=== PATIENT | female | born 2000 | race African-American/Black ===

== ENCOUNTER 2023-12-13 17:43 | Emergency (ER) | payer OTHER, SELFPAY ==
[2023-12-13 17:45] VITALS: BP 133/74; PULSE 88; RESP 16; TEMP 36.9; O2SAT 100; BMI 31.9
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
[2023-12-13 21:52] VITALS: BP 119/72; PULSE 89; RESP 17; O2SAT 100
== END 2023-12-13 21:56 | disposition home or self-care (01) ==
PROVIDERS: Emergency Provider Emergency Medicine
DX: R51.9 Headache, unspecified (principal)
CPT/HCPCS: 70450; 99281; 99284

== ENCOUNTER 2024-01-17 14:12 | Emergency (ER) | payer OTHER, SELFPAY ==
[2024-01-17] VITALS (8 sets, daily range): BP systolic 112–124; BP diastolic 67–82; PULSE 69–90; RESP 13–18; TEMP 36.8; O2SAT 95–100; BMI 31.4
--- NOTE | 2024-01-17 15:30 | ED.EYEPROB ---
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 Patient has been followed by her primary care doctor and optometry for eye pain. She was seen 12/13/2023 in the emergency department for papilledema. Head CT at that time was negative. She continues to have eye pain and today at the scroll machine operator's office the papilledema was noted to be worse with possible visual field deficits and she was sent to the ER for MRI and lumbar puncture. On arrival patient states her visual thakkar have not changed. She does get light sensitivity and pain with specific eye movements, denies other complaints at this time. Related Data Allergies Allergy/AdvReac Type Severity Reaction Status Date / Time No Known Drug Allergies Allergy Verified 01/17/24 14:26 Patient History Social History Smoking Status: Unknown if ever smoked Smoking Status: Unknown if ever smoked Exam Initial Vital Signs Initial Vital Signs: Vital Signs Temperature 98.3 F 01/17/24 14:14 Pulse Rate 69 01/17/24 14:14 Respiratory Rate 13 01/17/24 14:14 Blood Pressure 121/82 01/17/24 14:14 Pulse Oximetry 100 01/17/24 14:14 Oxygen Delivery Method Room Air 01/17/24 14:14 Const: Awake, alert, no acute distress, nontoxic appearing Skin: Warm, Dry, intact, no rashes Neuro: AO x3, CN II-XII grossly intact, moves all extremities Procedures Lumbar Puncture Patient Position: left lateral decubitus Skin Prep: Povidone-Iodine 1% Local Anesthetic: lidocaine 1% Amount of anesthesia used (mL): 5 Spinal Needle Gauge: 22G Interspace Used: L4-L5 Additional Comments: Unsuccessful. Course Orders Ordered: ED Orders 01/17/24 16:25 CT head/brain wo con Stat Discontinued Medications Lorazepam (Lorazepam 2 Mg/Ml Inj) 2 mg IV NOW ONE Stop: 01/17/24 16:26 Last Admin: 01/17/24 17:34 Dose: 2 mg Documented By: RLS Morphine Sulfate (Morphine 4 Mg/Ml Inj) 2 mg IV NOW ONE Stop: 01/17/24 16:26 Last Admin: 01/17/24 17:33 Dose: 2 mg Documented By: FLAKO Vital Signs Vital signs: Vital Signs - 8 hr 01/17/24 14:14 01/17/24 14:23 01/17/24 14:24 Temperature 98.3 F Pulse Rate 69 Respiratory Rate 13 Blood Pressure 121/82 121/82 Pulse Oximetry 100 95 Oxygen Delivery Method Room Air 01/17/24 14:24 01/17/24 17:32 01/17/24 17:33 Temperature Pulse Rate 75 Respiratory Rate Blood Pressure 112/70 Pulse Oximetry 100 97 Oxygen Delivery Method 01/17/24 17:33 01/17/24 18:00 01/17/24 18:00 Temperature Pulse Rate 70 84 Respiratory Rate Blood Pressure 124/69 Pulse Oximetry 100 100 Oxygen Delivery Method MDM - Eye Problem Imaging Data CT scan - head: Radiologist's Impression: PROCEDURE: CT HEAD/BRAIN WO CON INDICATIONS: PAPILLEDEMA, worsening TECHNIQUE: Noncontrast 4.5 mm thick angled axial sections acquired from the foramen magnum to the vertex, with coronal and sagittal reformats. For radiation dose reduction, the following was used: automated exposure control, adjustment of mA and/or kV according to patient size. COMPARISON: [facility], CT, CT HEAD/BRAIN WO CON, 12/13/2023, 18:21. FINDINGS: Image quality: Diagnostic. CSF spaces: Basal cisterns are patent. No extra-axial fluid collections. Ventricles are normal in size and shape. Brain: No midline shift. No intracranial masses or hemorrhage. Wolf-white matter interface is normal. Skull and face: Calvarium and visualized facial bones are intact, without suspicious lesions. Sinuses: Visualized sinuses and mastoids are clear. IMPRESSION: No acute intracranial pathology. Dictated by: Mary Jo Montemayor M.D. on 01/17/2024 at 16:52 Approved by: Mary Jo Montemayor M.D. on 01/17/2024 at 16:52 [facility] Narrative Medical decision making narrative: Well-appearing patient with eye pain. Outside optometry reports noticed worsening of papilledema. Patient denies changes in her visual thakkar. Reports pain with eye movements. Call placed to neurology for recommendations. Spoke with Dr. Bailey at [facility] neurology, who recommended repeat head CT before lumbar puncture. Stated that based on presentation MRI not emergent and can wait until already scheduled on the 15. Did recommend that if lumbar puncture was successful that patient should have IgG sent to assess for possible MS. Unfortunately lumbar puncture successful. Bandage applied. Patient was counseled to keep her appointment on the for MRI as scheduled. She was counseled to continue to follow up with her PCM for further evaluation of her symptoms. Note for work provided. Discharge Plan Departure Patient Disposition: Home Clinical Impression: Eye pain Instructions: DI for Eye Pain Activity Restrictions/Additional Instructions: Your repeat head scan today was normal. Unfortunately the lumbar puncture we attempted today was not successful. I spoke with Neurology at [facility]. Your clinical presentation is overall reassuring and you are safe to wait for your MRI in 5 days as already scheduled. Continue to follow up with your primary care doctor for your complaints. Stand Alone Forms: Patient Portal/API/Survey, Work Release Note
--- NOTE | 2024-01-17 16:25 | DI.CT.S_ITS ---
PROCEDURE: CT HEAD/BRAIN WO CON INDICATIONS: PAPILLEDEMA, worsening TECHNIQUE: Noncontrast 4.5 mm thick angled axial sections acquired from the foramen magnum to the vertex, with coronal and sagittal reformats. For radiation dose reduction, the following was used: automated exposure control, adjustment of mA and/or kV according to patient size. COMPARISON: [facility], CT, CT HEAD/BRAIN WO CON, 12/13/2023, 18:21. FINDINGS: Image quality: Diagnostic. CSF spaces: Basal cisterns are patent. No extra-axial fluid collections. Ventricles are normal in size and shape. Brain: No midline shift. No intracranial masses or hemorrhage. Wolf-white matter interface is normal. Skull and face: Calvarium and visualized facial bones are intact, without suspicious lesions. Sinuses: Visualized sinuses and mastoids are clear. IMPRESSION: No acute intracranial pathology. Dictated by: Mary Jo Montemayor M.D. on 01/17/2024 at 16:52 Approved by: Mary Jo Montemayor M.D. on 01/17/2024 at 16:52
[2024-01-17] MEDS: MORPHINE 4 MG/ML INJ 2 MG IV (17:33)
[2024-01-17] MEDS: LORazepam 2 MG/ML INJ IV (17:34)
== END 2024-01-17 19:30 | disposition home or self-care (01) ==
PROVIDERS: Emergency Provider Emergency Medicine
DX: H57.13 Ocular pain, bilateral (principal)
CPT/HCPCS: 36415; 70450; 96374; 96375; 99284; J2060; J2270

== ENCOUNTER → 2024-01-22 10:44 | Outpatient (CLI) | payer OTHER, SELFPAY ==
--- NOTE | 2024-01-22 10:46 | DI.MRI.S_ITS ---
PROCEDURE: MR HEAD/BRAIN WO/W CON INDICATIONS: PAPILLEDEMA ASSOC. W INCREASED INTRACRANIAL PRESS TECHNIQUE: Noncontrast sagittal T1 spin echo, axial T2 fast spin echo, axial FLAIR, axial gradient echo, axial diffusion and ADC through the brain. Axial/sagittal/coronal 3-D CISS, thin-slice axial T1 spin echo with fat saturation through the skull base. After the administration of contrast, axial and coronal thin-slice T1 spin echo with fat saturation through the skull base, axial and coronal and sagittal T1 spin echo with fat saturation through the brain. COMPARISON: None. FINDINGS: CSF spaces: Ventricles are normal in size and shape. No extra-axial fluid collections. Basal cisterns are patent. Brain: No intracranial bleeds or mass effects. No abnormal intracranial enhancement. Diffusion weighted images show no acute ischemic insults. Wolf-white matter interface is intact. Brainstem is normal. Normal intravascular flow voids are present. Skull and face: Calvarial marrow signal is normal. There is fluid distension of both optic nerve sheaths as well as flattening of the posterior sclera on the right. Flattening of the pituitary against the floor of the sella is also noted. Sinuses: Sinuses and mastoids appear clear. IMPRESSION: Signs of increased intracranial pressure without intracranial mass lesion or abnormal enhancement. Primary differential would be pseudotumor cerebri Approved by: Atn Cisneros M.D. on 01/23/2024 at 17:43
== END ==
DX: H47.11 Papilledema associated with increased intracranial pressure (principal)
CPT/HCPCS: 70553; A9579

== ENCOUNTER 2024-02-19 07:55 | Emergency (ER) | payer OTHER, SELFPAY ==
[2024-02-19 08:02] VITALS: O2SAT 98
[2024-02-19 08:03] VITALS: BP 105/65; PULSE 69; O2SAT 100
[2024-02-19 08:08] VITALS: BP 105/65; PULSE 71; RESP 16; TEMP 36.4; O2SAT 99; BMI 30.4
--- NOTE | 2024-02-19 08:14 | ED_ITS ---
HPI - Headache General Chief Complaint: Headache Stated Complaint: had procedure 3 days ago, now ARREGUIN and back pain Time Seen by Provider: 02/19/24 08:03 History of Present Illness HPI Narrative: 23-year-old woman with concerns for headache, followed at [facility] with lumbar puncture done 4 days ago. She comes in complaining of headache with movement and standing. No fevers no visual changes, no acute nausea or vomiting. She is concerned that she may have headache related to the lumbar puncture. She does have follow up with primary care and neurology specialists in the near future. Related Data Allergies Allergy/AdvReac Type Severity Reaction Status Date / Time No Known Drug Allergies Allergy Verified 01/17/24 14:26 Review of Systems Review of Systems Narrative: Pertinent positive and negative findings as per HPI Patient History Social History Smoking Status: Unknown if ever smoked Smoking Status: Unknown if ever smoked Exam Initial Vital Signs Initial Vital Signs: Vital Signs Temperature 97.5 F L 02/19/24 08:08 Pulse Rate 71 02/19/24 08:08 Respiratory Rate 16 02/19/24 08:08 Blood Pressure 105/65 02/19/24 08:08 Pulse Oximetry 99 02/19/24 08:08 Oxygen Delivery Method Room Air 02/19/24 08:08 General: Alert appropriate in no acute distress HEENT: Pupils are equal reactive. No pain with extraocular eye movement Respiratory: Able to speak in full sentences, no obvious respiratory distress Skin: No obvious rashes, warm and dry. Area over the lumbar spine where lumbar puncture was performed is entirely healed with no significant tenderness or redness. Neurologic: Grossly intact no obvious asymmetries or abnormalities Psych: appropriate insight and affect, cooperative Course Vital Signs Vital signs: Vital Signs - 8 hr 02/19/24 08:08 Temperature 97.5 F L Pulse Rate 71 Respiratory Rate 16 Blood Pressure 105/65 Pulse Oximetry 99 Oxygen Delivery Method Room Air MDM - Headache MDM Narrative Medical decision making narrative: CC: Headache Complicating co-morbidities: Recent lumbar puncture Data collected from: patient Medical records reviewed: Records from [facility] with procedure and workup are not immediately available Differential considered: Post lumbar puncture headache, migraine, meningitis, other viral syndrome Exam documented above, pertinent findings include: Exam is quite benign. No visual changes. Minimal tenderness with positional changes that resolves fairly quickly. No meningismus and remainder of neurologic exam is unremarkable Lab Test results independently reviewed as above. Pertinent findings: CBC shows chronic stable anemia, no leukocytosis or left shift Chemistries are entirely reassuring Treatments: L of fluid, Zofran, Toradol and a double shot latte as we do not have IV caffeine available today Re-evaluations: Patient is currently pain-free Discussion: 23-year-old woman with mild post spinal headache resolved with fluids nonsteroidals and caffeine. Recommended Excedrin for headache over the next couple of days as well as continued focus on increasing fluids for the next 24 hours. There was no signs of infection, no indication for additional imaging or hospitalization. Patient did have questions about the mild anemia noted on her H&H. She apparently has had iron-deficiency anemia in the past. Numbers reviewed her, recommended [id number] iron and vitamin-C supplementation follow up with her primary care physician She is safe for discharge Discharge Plan Departure Patient Disposition: Home Clinical Impression: Spinal headache Anemia Qualifiers: Anemia type: iron deficiency Iron deficiency anemia type: unspecified iron deficiency Qualified Code(s): D50.9 - Iron deficiency anemia, unspecified Instructions: Anemia, DI for Post-Spinal Puncture Headache Activity Restrictions/Additional Instructions: Thank you for coming into I suspect you did have a mild post spinal headache. Resolved nicely with fluids, nausea medication, nonsteroidal IV medication and the 2 shots of caffeine For pain control if the headache returns over the next couple of days, I would recommend 2 extra-strength Excedrin. Continuing to make sure that you are well hydrated we will also help prevent recurrence Incidentally noted is mild anemia. Your hemoglobin is 10.8, normal as over 12th. You are hematocrit is 34, normal is over 36. Your MCV (mean corpuscular volume, the average size of each red blood cell) is somewhat small suggesting mild iron deficiency. An [id number] iron supplement taken with the vitamin-C can help with this. If you find that you are having worsening headache, fever, nausea, visual changes or any new findings that are of concern, please do return to the ER Stand Alone Forms: Patient Portal/API/Survey
[2024-02-19 08:49] LABS: Add Manual Diff / Slide Review NO; Basophils Absolute Auto 0 /uL (0-100); Basophils Percent Auto 0.5 % (0-2); Eosinophils Absolute Auto 200 /uL (0-450); Eosinophils Percent Auto 3.3 % (2-4); Hemoglobin 10.8 g/dL (12.0-16.0); Lymphocytes Absolute Auto 1700 /uL (1100-4500); Lymphocytes Percent Auto 25.6 % (25-40); Mean Corpuscular HGB Conc 31.8 % (30-36); Mean Corpuscular Hemoglobin 23.5 PG (26-34); Monocytes Absolute Auto 600 /uL (0-900); Monocytes Percent Auto 8.2 % (3-14); Neutrophils Absolute Auto 4200 /uL (1500-7000); Neutrophils Percent Auto 62.4 % (50-75); Platelet Count 206 X10^3/uL (150-400); Red Cell Distribution Width 20.8 % (11.6-14.8); White Blood Cell Count 6.8 X10^3/uL (4.5-11.0)
[2024-02-19] MEDS: SODIUM CHLORIDE 0.9% 1,000 ML 1000 ML IV (08:50)
[2024-02-19] MEDS: ONDANSETRON 4 MG/2 ML INJ IV (08:50)
[2024-02-19] MEDS: KETOROLAC 30 MG/ML VIAL 15 MG IV (08:50)
[2024-02-19 08:57] LABS: Alanine Aminotransferase 17 IU/L (<35); Albumin 4.3 g/dL (3.5-5.0); Albumin Globulin Ratio 1.2 (1.0-2.8); Alkaline Phosphatase 54 U/L (38-126); Aspartate Aminotransferase 22 IU/L (14-36); BUN Creatinine Ratio 16.1 (6-22); Bilirubin Total 0.3 mg/dL (0.2-1.3); Blood Urea Nitrogen 15 mg/dL (7-17); Calcium 9.2 mg/dL (8.4-10.2); Carbon Dioxide 22 mmol/L (22-32); Chloride 105 mmol/L (98-107); Estimated Glomerular Filt Rate > 60 mL/min (>60); Globulin 3.6 g/dL (1.7-4.1); Glucose 90 mg/dL (70-100); HEMOLYSIS < 15 (0-50); Potassium 3.9 mmol/L (3.4-5.1); Sodium 135 mmol/L (137-145); Total Protein 7.9 g/dL (6.3-8.2)
[2024-02-19 08:58] LABS: Anisocytosis 1+
--- NOTE | 2024-02-19 09:24 | PC.NURSE ---
Pt reports headache wrapping around like a band and on top of head. Pt denies numbness, tingling. Denies loss of bladder or bowel. Pt states that any time she would stand up fast, bend over, or lift her head her headache would worsen. Pt states that after interventions here in the ER her pain is barely noticeable. Speech clear. Respirations regular and unlabored.
[2024-02-19 09:53] VITALS: BP 111/61; PULSE 70; O2SAT 100
== END 2024-02-19 09:54 | disposition home or self-care (01) ==
PROVIDERS: Emergency Provider Emergency Medicine
DX: G97.1 Other reaction to spinal and lumbar puncture (principal); D50.9 Iron deficiency anemia, unspecified
CPT/HCPCS: 80053; 85025; 96361; 96374; 96375; 99283; 99284; J1885; J2405

== ENCOUNTER 2024-11-04 17:04 | Emergency (ER) | payer OTHER, SELFPAY ==
[2024-11-04 17:18] VITALS: PULSE 99
[2024-11-04 17:30] VITALS: BP 122/58; PULSE 88; PULSE 97; RESP 24; TEMP 37.1; O2SAT 100; O2SAT 98; BMI 30.4
[2024-11-04 18:00] VITALS: PULSE 92; O2SAT 98
[2024-11-04 18:13] LABS: Strep Grp A by PCR Rapid Negative (Negative)
--- NOTE | 2024-11-04 18:13 | ED_ITS ---
HPI - URI/Sore Throat General Chief Complaint: Upper Respiratory Symptoms Stated Complaint: cold like symptoms Time Seen by Provider: 11/04/24 18:10 Source: patient Mode of arrival: Ambulatory History of Present Illness HPI Narrative: 24-year-old female with a history of idiopathic intracranial hypertension on acetazolamide presents with complaint of nasal congestion, nonproductive cough, occasional sore throat, chills. Patient denies fevers. She notes no chest pain but has had some shortness of breath at time. She describes a nonproductive cough. She has not had any nausea or vomiting. She states no constipation she has had some mild diarrhea since her symptoms started. Denies any dysuria urgency or frequency. No rash or skin changes. States symptoms started Tuesday all with the same time. She states she was at [facility] having a follow up for her idiopathic intracranial hypertension she states her scans and workup looked very good and that she is going to three-month checks. She states they did not wear gloves when they evaluated her and she thinks that is what got her infected. She denies any allergies to medications. States it is he does oral meds her only daily medication besides PRN acetaminophen or ibuprofen. Related Data Allergies Allergy/AdvReac Type Severity Reaction Status Date / Time No Known Drug Allergies Allergy Verified 11/04/24 17:30 Review of Systems Review of Systems ROS Unobtainable: All systems reviewed & are unremarkable except as noted in HPI and below Patient History Social History Smoking Status: Never smoker Smoking Status: Never smoker Exam Narrative Exam Narrative: GEN: well nourished, well appearing female, alert and oriented x 3, patient appears to be in mild distress. HEENT: Atraumatic, pupils are equal round reactive to light, extraocular movements are intact, bilateral nasal congestion, TMs are clear with no fluid, there is no conjunctival pallor. Throat is erythematous, mild tonsillar enlargement bilaterally no uvular deviation, 1 white spot on her tonsil. HEART: Regular rate and rhythm without murmur, clicks, rubs. LUNGS:Lungs clear to auscultation, no wheezes, rales, crackles, chest moves symmetrically ABD:bowel sounds normal, soft, non-tender, no guarding, rebound, rigidity, no masses noted, no hepatosplenomegaly MSCL: Full range of motion, no edema bilateral upper and lower extremities. NEURO:CN 2-12 intact, sensation normal. Initial Vital Signs Initial Vital Signs: Vital Signs Pulse Rate 99 H 11/04/24 17:18 Course Orders Ordered: ED Orders 11/04/24 17:53 Covid-19 + FLU A/B + RSV - PCR Stat Strep Grp A by PCR Rapid Stat Throat Culture Stat Vital Signs Vital signs: Vital Signs - 8 hr 11/04/24 17:30 Temperature 98.7 F Pulse Rate 97 H Respiratory Rate 24 Blood Pressure 122/58 L Pulse Oximetry 100 Oxygen Delivery Method Room Air MDM - URI/Sore Throat Lab Data Labs: Lab Results 11/04/24 Range/Units 17:53 SARS-CoV-2 (PCR) Negative (Negative) Influenza A (RT-PCR) Flu a negative (NEGATIVE) Influenza B (RT-PCR) Flu b negative (NEGATIVE) RSV (PCR) Negative (Negative) Group A Strep (PCR) Negative (Negative) MDM Narrative Medical decision making narrative: Strep PCR swab is negative. COVID/influenza/RSV is negative. Well-appearing female with symptoms that are consistent with a viral upper respiratory infection. Discussed return precautions. Discharge Plan Departure Patient Disposition: Home Clinical Impression: Upper respiratory infection Instructions: DI for Viral Upper Respiratory Infection -- Adult Activity Restrictions/Additional Instructions: Follow up as needed. I hope you feel improved soon. Your rapid strep and COVID/influenza/RSV is negative but you do have a throat culture pending. If this is positive you would be contacted in 2-3 days with results. If negative you will not be contacted. You can continue with the acetaminophen and/or ibuprofen as needed for symptoms. Please return for severe headaches, sudden vision changes, new or worsening chest pain or shortness of breath, persistent vomiting, new swelling of your extremities, coughing up blood or other new or concerning changes. Stand Alone Forms: Patient Portal/API, Work Release Note
[2024-11-04 18:30] VITALS: PULSE 94; O2SAT 100
[2024-11-04 18:39] LABS: Influenza A - CEPHEID Flu A NEGATIVE (NEGATIVE); Influenza B - CEPHEID Flu B NEGATIVE (NEGATIVE)
[2024-11-04 18:58] LABS: COVID-19 CEPHEID 4-PLEX PCR Negative (Negative)
[2024-11-04 19:00] VITALS: PULSE 92; O2SAT 99
[2024-11-04 19:04] VITALS: BP 121/68; PULSE 98; O2SAT 99
== END 2024-11-04 19:09 | disposition home or self-care (01) ==
PROVIDERS: Emergency Provider Emergency Medicine
DX: J06.9 Acute upper respiratory infection, unspecified (principal)
CPT/HCPCS: 87070; 87147; 87637; 87651; 99282

== ENCOUNTER 2024-11-21 09:21 | Emergency (ER) | payer OTHER, SELFPAY ==
[2024-11-21 09:30] VITALS: BP 105/73; PULSE 66; RESP 14; TEMP 36.2; O2SAT 100; BMI 30.4
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
[2024-11-21] MEDS: IBUPROFEN 400 MG TABLET 800 MG PO (10:16)
== END 2024-11-21 10:34 | disposition home or self-care (01) ==
PROVIDERS: Emergency Provider Emergency Medicine
DX: L04.1 Acute lymphadenitis of trunk (principal)
CPT/HCPCS: 99283